=== PATIENT | male | born 1985 ===

== ENCOUNTER 2022-05-17 09:55 | Emergency (ER) | payer MEDICAID, OTHER ==
[2022-05-17] MEDS ORDERED: Acetaminophen 500 MG Tab PO ONE (10:48)
[2022-05-17] MEDS ORDERED: Ketorolac 30 MG/ML SDV IM ONE (10:48)
[2022-05-17] MEDS ORDERED: Amoxicillin/Clavulanate K 875-125 MG Tab PO ONE (10:50)
[2022-05-17 11:25] LABS: ANION GAP 9.7 meq/L (7-15)
== END 2022-05-17 11:50 | disposition home or self-care (01) ==
LOC: LL.ED 09:55
DX: K04.7 Periapical abscess without sinus (principal); F17.210 Nicotine dependence, cigarettes, uncomplicated
CPT/HCPCS: 36415; 80053; 83605; 85025; 86140; 96372; 99283; A9270-GY; J1885

== ENCOUNTER 2023-08-23 13:14 | Emergency (ER) | payer MEDICAID, OTHER ==
[2023-08-23] MEDS ORDERED: Diphtheria,Pertussis(Acell),Tetanus Vaccine 0.5 ML Syringe IM ONE (13:45)
[2023-08-23] MEDS ORDERED: Bupivacaine 0.5%/EPINEPHrine 1:200,000 30 ML SDV INJECT ONE (13:45)
[2023-08-23] MEDS ORDERED: Bupivacaine 0.5%/EPINEPHrine 1:200,000 30 ML SDV ONE (14:17)
[2023-08-23] MEDS ORDERED: Bacitracin Oint 1 GM U/D Packet TOP ONE (16:48)
== END 2023-08-23 17:30 | disposition home or self-care (01) ==
LOC: LL.ED 13:14
DX: S96.921A Laceration of unspecified muscle and tendon at ankle and foot level, right foot, initial encounter (principal); F17.210 Nicotine dependence, cigarettes, uncomplicated; Z23 Encounter for immunization; W23.0XXA Caught, crushed, jammed, or pinched between moving objects, initial encounter
CPT/HCPCS: 12004; 73630; 90471; 90715; 99283; J3490